=== PATIENT | male | born 1995 | race African-American/Black ===

== ENCOUNTER 2016-10-23 13:57 | Emergency (ER) | payer MEDICAID ==
[~2016-10-23] VITALS: Ht 172.7 cm; Wt 67.5 kg
[2016-10-23 17:25] VITALS: BP 119/77
== END 2016-10-23 17:25 | disposition home or self-care (01) ==
LOC: ER 16:32
DX: A63.0 Anogenital (venereal) warts (principal); J45.909 Unspecified asthma, uncomplicated
CPT/HCPCS: 99282